=== PATIENT | male | born 1965 | race Caucasian/White ===

== ENCOUNTER 2017-01-09 11:42 | Emergency (ER) | payer OTHER ==
[~2017-01-09] VITALS: Ht 162.6 cm; Wt 108.9 kg
[~2017-01-09 11:42] MED LIST: METH10 PO
[2017-01-09 11:44] VITALS: BP 143/88
== END 2017-01-09 13:21 | disposition home or self-care (01) ==
LOC: EMS 11:43
DX: Z48.00 Encounter for change or removal of nonsurgical wound dressing (principal); L02.413 Cutaneous abscess of right upper limb; F17.210 Nicotine dependence, cigarettes, uncomplicated; F11.90 Opioid use, unspecified, uncomplicated
CPT/HCPCS: 99281; 99282

== ENCOUNTER 2018-01-13 09:45 | Emergency (ER) | payer OTHER ==
[~2018-01-13] VITALS: Ht 165.1 cm; Wt 113.6 kg
[2018-01-13 11:03] LABS: HEMATOCRIT 42.3 % (41-53); HEMOGLOBIN 14.2 g/dL (13.5-17.5); MEAN CORPUSCULAR HEMOGLOBIN 29.8 pg (26.0-34.0); MEAN CORPUSCULAR HGB CONC 33.5 G/dL (31.0-37.0); MEAN CORPUSCULAR VOLUME 89 fL (80-100); PLATELET COUNT (AUTO) 286 K/uL (150-450); RED BLOOD CELL COUNT(AUTO) 4.75 MIL/uL (4.50-5.90); RED CELL DISTRIBUTION WIDTH 13.2 % (11.5-14.5)
[2018-01-13 11:09] LABS: ANION GAP 9 mmol/L (8-16); CALCIUM, TOTAL 8.7 mg/dL (8.8-10.5); CARBON DIOXIDE 26 mmol/L (22-29); CHLORIDE 102 mmol/L (98-107); CREATININE 0.76 mg/dL (0.60-1.30); GLOMERULAR FILTR. RATE CALC > 60 mL/min (>60); GLUCOSE,RANDOM 87 mg/dL (70-110); POTASSIUM 3.7 mmol/L (3.5-5.1); SODIUM SERUM 137 mmol/L (136-145); UREA NITROGEN, BLOOD 15 mg/dL (7-18)
[2018-01-13 11:15] LABS: ALANINE AMINOTRANSFERASE 195 U/L (12-78); ALBUMIN 3.3 g/dL (3.4-5.0); ALKALINE PHOSPHATASE 122 U/L (46-116); ASPARTATE AMINOTRANSFERASE 203 U/L (15-37); BILIRUBIN,TOTAL 0.7 mg/dL (0.1-1.0); TOTAL PROTEIN, SERUM 8.1 g/dL (6.4-8.2)
[2018-01-13 11:34] LABS: BAND NEUTROPHILS % (MANUAL) 8 % (0-5); EOSINOPHILS % (MANUAL) 3 % (1-6); LYMPHOCYTES % (MANUAL) 11 % (22-44); MONOCYTES % (MANUAL) 2 % (2-9); SEGMENTED NEUTROPHILS % 76 % (40-70)
[2018-01-13 12:02] VITALS: BP 168/99
== END 2018-01-13 13:17 | disposition home or self-care (01) ==
LOC: EMS 09:45
DX: M79.1 Myalgia (principal); R74.8 Abnormal levels of other serum enzymes; F19.10 Other psychoactive substance abuse, uncomplicated; F15.90 Other stimulant use, unspecified, uncomplicated; F11.90 Opioid use, unspecified, uncomplicated; F17.210 Nicotine dependence, cigarettes, uncomplicated; Z59.0 Homelessness; Z90.49 Acquired absence of other specified parts of digestive tract
CPT/HCPCS: 36415; 80053; 85025; 99284; G0480

== ENCOUNTER 2019-08-14 09:39 | Emergency (ER) | payer OTHER ==
[~2019-08-14] VITALS: Ht 162.6 cm; Wt 109.1 kg
[2019-08-14 09:55] VITALS: BP 123/85
[2019-08-14] MEDS ORDERED: DOXYCYCLINE HYCLATE 100 MG CAPSULE PO ONE (10:00)
== END 2019-08-14 10:59 | disposition home or self-care (01) ==
LOC: EMS 09:43
DX: R45.851 Suicidal ideations (principal); L03.114 Cellulitis of left upper limb; L03.113 Cellulitis of right upper limb; F11.90 Opioid use, unspecified, uncomplicated; F14.90 Cocaine use, unspecified, uncomplicated; F19.90 Other psychoactive substance use, unspecified, uncomplicated; F17.210 Nicotine dependence, cigarettes, uncomplicated; Z59.0 Homelessness; Z90.89 Acquired absence of other organs
CPT/HCPCS: 99406